=== PATIENT | female | born 1985 | race Caucasian/White ===

== ENCOUNTER 2018-02-22 22:20 | Emergency (ER) | payer SELFPAY ==
[2018-02-22] MEDS ORDERED: KETOROLAC 30 MG/ML INJ ONE (23:09)
[2018-02-22] MEDS ORDERED: PROMETHAZINE 25 MG/ML VIAL ONE (23:09)
[2018-02-22 23:14] LABS: Barbiturates NEGATIVE (NEGATIVE); Benzodiazepines NEGATIVE (NEGATIVE); Cocaine NEGATIVE (NEGATIVE); METHAMPHETAM POSITIVE (NEGATIVE); Methadone NEGATIVE (NEGATIVE); Opiates NEGATIVE (NEGATIVE); Phencyclidine NEGATIVE (NEGATIVE); THC Cannibis POSITIVE (NEGATIVE)
[2018-02-22 23:24] LABS: Urine Blood 1+ (NEG); Urine Glucose 2+ (NEG); Urine Protein NEGATIVE (NEG); Urine Specific Gravity 1.015 (1.005-1.030)
[2018-02-22 23:24] LABS: Absolute Monocytes 0.6 K/uL (0.1-1.3); Absolute Neutrophil 6.4 K/uL (1.8-8.0); Basophils % 0.4 % (0-1.3); Eosinophils % 1.4 % (0-4.4); Hematocrit 39.4 % (36.0-45.0); Lymphocytes % 22.1 % (15.3-44.8); MCH 30.3 pg (27.0-35.0); MCV 87.3 fL (80-100); MPV 7.6 fL (7.6-11.3); Monocytes % 6.9 % (3.3-12.3); RBC Red Blood Cell Count 4.52 M/uL (3.86-4.86)
[2018-02-22 23:45] LABS: Albumin 3.2 g/dL (3.4-5.0); Bilirubin Direct 0.1 mg/dL (0-0.2); Bilirubin Total 0.4 mg/dL (0.2-1.0); Potassium 4.2 mmol/L (3.5-5.1); Protein, Total 7.5 g/dL (6.4-8.2)
[2018-02-23] MEDS ORDERED: NA CHLORIDE 0.9% 1,000 ML ONE (00:12)
--- NOTE | 2018-02-23 01:20 | EDPHYS ---
Physician Documentation [facility] Name: So Antony Age: 32 yrs Sex: Female : 1985 Arrival Date: 02/22/2018 Time: 22:22 Bed 4 Private MD: ED Physician Manny Harvey HPI: 02/22 23:53 This 32 yrs old Female presents to ER via Ambulatory with complaints of RUQ pm1 abdominal pain. 23:53 The patient presents with abdominal pain in the right upper quadrant. Onset: The pm1 symptoms/episode began/occurred last night. The symptoms radiate to right back. Associated signs and symptoms: Pertinent negatives: nausea, vomiting, and diarrhea, chest pain, dysuria, fever, shortness of breath. The symptoms are described as sharp. Modifying factors: The symptoms are alleviated by nothing, the symptoms are aggravated by nothing. Severity of pain: in the emergency department the pain is actually worse. The patient has experienced similar episodes in the past, a few times, and the symptoms today are exactly the same, to when the patient was apparently diagnosed with Hepatitis. The patient has not recently seen a physician. 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 - Social history:: Smoking status: Patient uses tobacco products, smokes one-half pack cigarettes per day, Patient uses street drugs, marijuana, Patient/guardian denies using alcohol. - Ebola Screening: : No symptoms or risks identified at this time. ROS: 23:53 Constitutional: Negative for fever, chills, and weight loss, Eyes: Negative for injury, pm1 pain, redness, and discharge, ENT: Negative for injury, pain, and discharge, Neck: Negative for injury, pain, and swelling, Cardiovascular: Negative for chest pain, palpitations, and edema, Respiratory: Negative for shortness of breath, cough, wheezing, and pleuritic chest pain, Back: Negative for injury and pain, MS/Extremity: Negative for injury and deformity, Skin: Negative for injury, rash, and discoloration, Neuro: Negative for headache, weakness, numbness, tingling, and seizure. 23:53 Abdomen/GI: Positive for abdominal pain, Negative for nausea, vomiting, and diarrhea. Exam: 23:55 Constitutional: This is a well developed, well nourished patient who is awake, alert, pm1 and in no acute distress. Head/Face: Normocephalic, atraumatic. Eyes: Pupils equal round and reactive to light, extra-ocular motions intact. Lids and lashes normal. Conjunctiva and sclera are non-icteric and not injected. Cornea within normal limits. Periorbital areas with no swelling, redness, or edema. ENT: Nares patent. No nasal discharge, no septal abnormalities noted. Tympanic membranes are normal and external auditory canals are clear. Oropharynx with no redness, swelling, or masses, exudates, or evidence of obstruction, uvula midline. Mucous membranes moist. Neck: Trachea midline, no thyromegaly or masses palpated, and no cervical lymphadenopathy. Supple, full range of motion without nuchal rigidity, or vertebral point tenderness. No Meningismus. Chest/axilla: Normal chest wall appearance and motion. Nontender with no deformity. No lesions are appreciated. Cardiovascular: Regular rate and rhythm with a normal S1 and S2. No gallops, murmurs, or rubs. Normal PMI, no JVD. No pulse deficits. Respiratory: Lungs have equal breath sounds bilaterally, clear to auscultation and percussion. No rales, rhonchi or wheezes noted. No increased work of breathing, no retractions or nasal flaring. 23:55 Back: No spinal tenderness. No costovertebral tenderness. Full range of motion. Skin: Warm, dry with normal turgor. Normal color with no rashes, no lesions, and no evidence of cellulitis. MS/ Extremity: Pulses equal, no cyanosis. Neurovascular intact. Full, normal range of motion. 23:55 Abdomen/GI: Inspection: abdomen appears normal, Bowel sounds: normal, Palpation: soft, mild abdominal tenderness, in the right upper quadrant, mass, is not appreciated, rebound tenderness, is not appreciated. 23:55 Neuro: Orientation: is normal, Motor: is normal, moves all fours. Vital Signs: 22:41 BP 140 / 84; Pulse 101; Resp 20 S; Temp 98.7(O); Pulse Ox 99% on R/A; Weight 56.7 kg bb (R); Height 5 ft. 4 in. (162.56 cm) (R); Pain 10/10; 23:43 BP 116 / 95; Pulse 95; Resp 18; Pulse Ox 98% on R/A; lp1 02/23 00:30 BP 154 / 95; Pulse 98; Resp 16; Pulse Ox 98% on R/A; lp1 01:30 BP 136 / 79; Pulse 91; Resp 16; Pulse Ox 99% on R/A; lp1 02/22 22:41 Body Mass Index 21.46 (56.70 kg, 162.56 cm) bb MDM: 02/22 22:32 Patient medically screened. pm1 23:56 Data reviewed: vital signs. Data interpreted: Pulse oximetry: on room air is 98 %. pm1 Interpretation: normal. 02/23 01:18 Counseling: I had a detailed discussion with the patient and/or guardian regarding: the pm1 historical points, exam findings, and any diagnostic results supporting the discharge/admit diagnosis, lab results, radiology results, the need for outpatient follow up, to return to the emergency department if symptoms worsen or persist or if there are any questions or concerns that arise at home. 02/22 22:36 Order name: Basic Metabolic Panel; Complete Time: 23:52 pm1 02/22 22:36 Order name: CBC with Diff; Complete Time: 23:52 pm1 02/22 22:36 Order name: Hepatic Function; Complete Time: 23:52 pm1 02/22 22:36 Order name: Lipase; Complete Time: 23:52 pm1 02/22 22:36 Order name: UDS; Complete Time: 23:25 pm1 02/22 23:08 Order name: Urine Dipstick--Ancillary (enter results); Complete Time: 23:25 ms 02/22 22:36 Order name: Urine Test (obtain specimen); Complete Time: 23:23 pm1 02/22 22:36 Order name: IV Saline Lock; Complete Time: 22:45 pm1 02/22 22:36 Order name: Labs collected and sent; Complete Time: 22:45 pm1 02/22 22:36 Order name: CT Abd/Pelvis - W/Contrast: IV contrast pm1 02/22 23:08 Order name: Urine --Ancillary (enter results); Complete Time: 23:25 ms 02/22 22:36 Order name: Urine Dipstick-Ancillary (obtain specimen); Complete Time: 23:23 pm1 Administered Medications: 02/22 23:23 Drug: TORadol 30 mg Route: IVP; Site: left forearm; lp1 02/23 00:15 Follow up: Response: Pain is decreased lp1 02/22 23:23 Drug: Phenergan 12.5 mg Route: IVP; Site: left forearm; lp1 02/23 00:15 Follow up: Response: No adverse reaction lp1 00:11 Drug: NS 0.9% 1000 ml Route: IV; Rate: 1000 ml; Site: left antecubital; ao 01:53 Follow up: IV Status: Completed infusion; IV Intake: 1000ml lp1 Point of Care Testing: Blood Glucose: 02/22 22:38 Blood Glucose: 382 mg/dL; lp1 Ranges: Critical Glucose Levels:Adult <50 mg/dl or >400 mg/dl <40 mg/dl or >180 mg/dl Disposition: 02/23 06:59 Co-signature as Attending Physician, Manny Harvey MD I agree with the assessment and tw4 plan of care. PA/ATHLETIC EQUIPMENT MANAGER's history reviewed, patient interviewed, and examined. Attestation: The patient's history, exam findings, diagnostics, and a summary of any interventions or procedures was reviewed in detail with Daniel Kim NP. Disposition: 02/23/18 01:20 Discharged to Home. Impression: Methamphetamine abuse, Unspecified abdominal pain, Cannabis abuse. - Condition is Stable. - Discharge Instructions: Abdominal Pain, Adult, Cannabis Use Disorder, Stimulant Use Disorder-Methamphetamines. - Medication Reconciliation Form, Thank You Letter, Antibiotic Education, Prescription Opioid Use form. - Follow up: Emergency Department; When: As needed; Reason: Worsening of condition. Follow up: Private Physician; When: 2 - 3 days; Reason: Recheck today's complaints, Continuance of care, Re-evaluation by your physician. - Problem is new. - Symptoms have improved. Signatures: Dispatcher [employer] EDZainab Shelton RN RN bb Pena, Laura, RN RN lp1 Louie Galindo RN RN ao Marinas, Patrick, NP ATHLETIC EQUIPMENT MANAGER pm1 Manny Harvey, MD RAMIREZ tw4 Corrections: (The following items were deleted from the chart) 01:55 01:20 02/23/2018 01:20 Discharged to Home. Impression: Methamphetamine abuseUnspecified lp1 abdominal pain; Cannabis abuse. Condition is Stable. Forms are Medication Reconciliation Form, Thank You Letter, Antibiotic Education, Prescription Opioid Use. Follow up: Emergency Department; When: As needed; Reason: Worsening of condition. Follow up: Private Physician; When: 2 - 3 days; Reason: Recheck today's complaints, Continuance of care, Re-evaluation by your physician. Problem is new. Symptoms have improved. pm1
--- NOTE | 2018-02-23 01:20 | ER ---
Nurse's Notes [facility] Name: So Antony Age: 32 yrs Sex: Female : 1985 Arrival Date: 02/22/2018 Time: 22:22 Bed 4 Private MD: Diagnosis: Unspecified abdominal pain;Methamphetamine abuse;Cannabis abuse Presentation: 02/22 22:30 Presenting complaint: Patient states: she is having "liver pain" right upper abdominal bb pain radiating to back denies nausea, vomiting, or diarrhea, symptoms started last night. Transition of care: patient was not received from another setting of care. Onset of symptoms was February 21, 2018. Risk Assessment: Do you want to hurt yourself or someone else? Patient reports no desire to harm self or others. Initial Sepsis Screen: Does the patient meet any 2 criteria? No. Patient's initial sepsis screen is negative. Does the patient have a suspected source of infection? No. Patient's initial sepsis screen is negative. Care prior to arrival: None. 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 - Social history:: Smoking status: Patient uses tobacco products, smokes one-half pack cigarettes per day, Patient uses street drugs, marijuana, Patient/guardian denies using alcohol. - Ebola Screening: : No symptoms or risks identified at this time. Screenin:42 Abuse screen: Denies threats or abuse. Denies injuries from another. Nutritional lp1 screening: No deficits noted. Tuberculosis screening: No symptoms or risk factors identified. Fall Risk None identified. Assessment: 22:39 General: Appears uncomfortable, slender, Behavior is crying. Pain: Complains of pain in lp1 right upper quadrant Pain radiates to back. Neuro: Level of Consciousness is awake, alert, obeys commands, Oriented to person, place, time, situation. Cardiovascular: Patient's skin is warm and dry. Respiratory: Respiratory effort is even, unlabored, Respiratory pattern is regular, symmetrical, Breath sounds are clear bilaterally. GI: Abdomen is flat, Abdomen is tender to palpation in right upper quadrant. : No signs and/or symptoms were reported regarding the genitourinary system. EENT: No signs and/or symptoms were reported regarding the EENT system. Derm: Skin is pink, warm \\T\\ dry. Musculoskeletal: Circulation, motion, and sensation intact. 02/23 00:19 Reassessment: Patient and/or family updated on plan of care and expected duration. Pain lp1 level reassessed. Patient appears to be calm, resting, eyes closed Patient states symptoms have improved. 01:51 Reassessment: Patient awakened for discharge, complaint of continued abdominal pain. lp1 Vital Signs: 02/22 22:41 BP 140 / 84; Pulse 101; Resp 20 S; Temp 98.7(O); Pulse Ox 99% on R/A; Weight 56.7 kg bb (R); Height 5 ft. 4 in. (162.56 cm) (R); Pain 10/10; 23:43 BP 116 / 95; Pulse 95; Resp 18; Pulse Ox 98% on R/A; lp1 02/23 00:30 BP 154 / 95; Pulse 98; Resp 16; Pulse Ox 98% on R/A; lp1 01:30 BP 136 / 79; Pulse 91; Resp 16; Pulse Ox 99% on R/A; lp1 02/22 22:41 Body Mass Index 21.46 (56.70 kg, 162.56 cm) ED Course: 02/22 22:22 Patient arrived in ED. al2 22:29 Daniel Kim NP is PHCP. pm1 22:29 Manny Harvey MD is Attending Physician. pm1 22:38 Radiology exam delayed due to lab results not completed at this time. (BUN/Creatinine). 22:38 Guillermina Lee, JOAN is Primary Nurse. lp1 22:40 Triage completed. bb 22:43 Arm band placed on right wrist. lp1 22:43 Inserted saline lock: 20 gauge in right antecubital area, using aseptic technique. lp1 Blood collected. By tech. Johnny 22:44 Patient has correct armband on for positive identification. Bed in low position. Call lp1 light in reach. Pulse ox on. NIBP on. 23:21 Inserted saline lock: 20 gauge in left forearm, using aseptic technique. Blood lp1 collected. 20g to R AC DC'd due to patient discomfort when flushing, No infiltration noted, positive blood return. 02/23 00:17 CT Abd/Pelvis - W/Contrast: IV contrast In Process Unspecified. EDMS 00:25 CT completed. Patient tolerated procedure well. Patient moved to CT via stretcher. Patient moved back from CT. 01:52 No provider procedures requiring assistance completed. lp1 Administered Medications: 02/22 23:23 Drug: TORadol 30 mg Route: IVP; Site: left forearm; lp1 02/23 00:15 Follow up: Response: Pain is decreased lp1 02/22 23:23 Drug: Phenergan 12.5 mg Route: IVP; Site: left forearm; lp1 02/23 00:15 Follow up: Response: No adverse reaction lp1 00:11 Drug: NS 0.9% 1000 ml Route: IV; Rate: 1000 ml; Site: left antecubital; ao 01:53 Follow up: IV Status: Completed infusion; IV Intake: 1000ml lp1 Point of Care Testing: Blood Glucose: 02/22 22:38 Blood Glucose: 382 mg/dL; lp1 Ranges: Intake: 02/23 01:53 IV: 1000ml; Total: 1000ml. lp1 Outcome: 01:20 Discharge ordered by . pm1 01:54 Discharged to home via wheelchair. lp1 01:54 Condition: good 01:54 Discharge instructions given to patient, Instructed on discharge instructions, follow up and referral plans. Demonstrated understanding of instructions, follow-up care. 01:55 Patient left the ED. lp1 Signatures: Dispatcher [employer] EDPR Isiah Kelley Susan sj Ballard, Brenda, RN RN bb Pena, Laura, RN RN lp1 Louie Galindo RN RN ao Daniel Kim NP WINDOW UNIT AIR CONDITIONING MECHANIC pm1 Breanna Oates
--- NOTE | 2018-02-23 08:30 | RAD REPORT ---
EXAM DESCRIPTION: CTAbdomen Pelvis W Contrast - 02/23/2018 4:18 am CLINICAL HISTORY: Abdominal pain. ABD PAIN COMPARISON: None. TECHNIQUE: Biphasic CT imaging of the abdomen and pelvis was performed with 100 ml non-ionic IV cont rast. All CT scans are performed using dose optimization technique as appropriate and may include automated exposure control or mA/KV adjustment according to patient size. FINDINGS: The lung bases are clear. The liver, spleen, pancreas, adrenal glands and kidneys are within normal limits. No bowel obstruction, free air, free fluid or abscess. A few mildly thickened small bowel loops are s een in the left abdomen. The appendix is normal. No evidence of significant lymphadenopathy. No suspicious bony findings. Mild thickening of the urinary bladder wall is seen. Small amount of flu id is seen left adnexa. IMPRESSION: Urinary bladder wall thickening is suspected, which would be compatible with underlying cystitis. Advise correlation with urinalysis. A few mildly thickened small bowel loops in the left abdomen noted which are nonspecific. Enteritis i s a possibility.
== END 2018-02-23 01:55 | disposition home or self-care (01) ==
LOC: ER 22:20
DX: F15.10 Other stimulant abuse, uncomplicated (principal); F12.10 Cannabis abuse, uncomplicated; F17.210 Nicotine dependence, cigarettes, uncomplicated; E11.9 Type 2 diabetes mellitus without complications; Z79.4 Long term (current) use of insulin
CPT/HCPCS: 36415; 74177; 80048; 80076; 80307; 81003; 81025; 82962; 83690; 85025; 96361; 96374; 96375; 99284; J2550; J7030; Q9967

== ENCOUNTER 2018-02-24 21:58 | Emergency (ER) | payer SELFPAY ==
[2018-02-24] MEDS ORDERED: NA CHLORIDE 0.9% 100 ML IV ONE (22:47)
[2018-02-24] MEDS ORDERED: KETOROLAC 30 MG/ML INJ ONE (22:47)
[2018-02-24] MEDS ORDERED: FAMOTIDINE 20 MG/2 ML VIAL IV ONE (22:47)
[2018-02-24] MEDS ORDERED: PROMETHAZINE 25 MG/ML VIAL ONE (22:47)
[2018-02-24 23:38] LABS: Absolute Lymphocytes (CBC) 1.5 K/uL (0.7-4.9); Absolute Monocytes 0.7 K/uL (0.1-1.3); Absolute Neutrophil 6.4 K/uL (1.8-8.0); Basophils % 0.3 % (0-1.3); Eosinophils % 0.9 % (0-4.4); Lymphocytes % 17.7 % (15.3-44.8); MCH 30.1 pg (27.0-35.0); MCV 87.9 fL (80-100); MPV 7.7 fL (7.6-11.3); Monocytes % 7.7 % (3.3-12.3); RBC Red Blood Cell Count 4.32 M/uL (3.86-4.86)
[2018-02-24 23:55] LABS: Albumin 2.7 g/dL (3.4-5.0); Bilirubin Total 0.2 mg/dL (0.2-1.0); Potassium 3.9 mmol/L (3.5-5.1)
[2018-02-25] MEDS ORDERED: INSULIN -REGULAR HUMAN 50 UNIT/0.5 ML ML ONE (00:04)
[2018-02-25] MEDS ORDERED: NA CHLORIDE 0.9% 1,000 ML ONE (00:04)
[2018-02-25 00:11] LABS: Urine Blood 2+ (NEG); Urine Glucose 2+ (NEG); Urine Protein NEGATIVE (NEG)
[2018-02-25 00:17] LABS: Urine Bacteria >50 /HPF (<20)
[2018-02-25 00:18] LABS: Urine Culture Reflex Order REFLEXED; Urine RBC <5 /HPF (NONE SEEN)
[2018-02-25] MEDS ORDERED: CEFTRIAXONE/SWI 1gm 1 GM/10 ML SYR ONE (01:28)
--- NOTE | 2018-02-25 02:07 | ER ---
Nurse's Notes [facility] Name: So Antony Age: 32 yrs Sex: Female : 1985 Arrival Date: 02/24/2018 Time: 22:08 Bed 13 Private MD: Diagnosis: Urinary tract infection, site not specified;Hyperglycemia, unspecified;Unspecified abdominal pain Presentation: 02/24 22:36 Presenting complaint: Patient states: she has right upper quadrant pain. [place] [facility] [place]. Transition of care: patient was not received from another setting of care. Onset of symptoms was February 23, 2018. Risk Assessment: Do you want to hurt yourself or someone else? Patient reports no desire to harm self or others. Initial Sepsis Screen: Does the patient meet any 2 criteria? No. Patient's initial sepsis screen is negative. Does the patient have a suspected source of infection? No. Patient's initial sepsis screen is negative. Care prior to arrival: None. 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 - Social history:: Smoking status: Patient uses tobacco products, smokes one-half pack cigarettes per day, Patient uses marijuana, Patient/guardian denies using alcohol. - Ebola Screening: : No symptoms or risks identified at this time. Screenin:38 Abuse screen: Denies threats or abuse. Denies injuries from another. Nutritional mg2 screening: No deficits noted. Tuberculosis screening: No symptoms or risk factors identified. Fall Risk Assessment: 23:36 General: Appears in no apparent distress. uncomfortable, Behavior is calm, cooperative. mg2 Pain: Complains of pain in RUQ Pain does not radiate. Pain currently is 9 out of 10 on a pain scale. Quality of pain is described as aching, Pain began gradually, Is intermittent. Neuro: Level of Consciousness is awake, alert, obeys commands, Oriented to person, place, time. Cardiovascular: Capillary refill < 3 seconds Patient's skin is warm and dry. Respiratory: Airway is patent Respiratory effort is even, unlabored, Respiratory pattern is regular, symmetrical. GI: No signs and/or symptoms were reported involving the gastrointestinal system. GI: No signs and/or symptoms were reported involving the gastrointestinal system. Reports upper abdominal pain, nausea, vomiting. : No signs and/or symptoms were reported regarding the genitourinary system. EENT: No signs and/or symptoms were reported regarding the EENT system. Derm: Skin is intact, Skin is pink, warm \T\ dry. normal. Musculoskeletal: Circulation, motion, and sensation intact. 02/25 00:51 Reassessment: Patient appears in no apparent distress at this time. Patient and/or mg2 family updated on plan of care and expected duration. Pain level reassessed. Patient is alert, oriented x 3, equal unlabored respirations, skin warm/dry/pink. 02:16 Reassessment: Patient appears in no apparent distress at this time. Patient and/or mg2 family updated on plan of care and expected duration. Pain level reassessed. Patient is alert, oriented x 3, equal unlabored respirations, skin warm/dry/pink. Vital Signs: 02/24 22:37 BP 110 / 75; Pulse 75; Resp 18; Temp 98.5(O); Pulse Ox 100% on R/A; Weight 58.97 kg; mg2 Height 5 ft. 4 in. (162.56 cm); Pain 10/10; 23:54 BP 125 / 94; Pulse 80; Resp 18; Pulse Ox 100% on R/A; Pain 0/10; mg2 02/25 00:51 BP 110 / 73; Pulse 88; Resp 18; Pulse Ox 100% on R/A; Pain 0/10; mg2 01:20 BP 100 / 65; Pulse 80; Resp 18; Pulse Ox 100% on R/A; mg2 02:16 BP 110 / 64; Pulse 81; Resp 18; Pulse Ox 100% on R/A; Pain 0/10; mg2 02/24 22:37 Body Mass Index 22.31 (58.97 kg, 162.56 cm) mg2 ED Course: 02/24 22:08 Patient arrived in ED. ds1 22:25 Daniel Kim NP is PHCP. pm1 22:25 Corey Fuentes MD is Attending Physician. pm1 22:35 Steve Hermosillo RN is Primary Nurse. mg2 22:36 Triage completed. mg2 22:57 No provider procedures requiring assistance completed. Inserted saline lock: 20 gauge mg2 in right antecubital area, using aseptic technique. Blood collected. 23:38 Patient has correct armband on for positive identification. Bed in low position. Call mg2 light in reach. Side rails up X 1. Pulse ox on. NIBP on. Door closed. Warm blanket given. 23:38 Arm band placed on right wrist. mg2 02/25 02:15 IV discontinued, intact, bleeding controlled, No redness/swelling at site. Pressure mg2 dressing applied. Administered Medications: 02/24 22:56 Drug: Pepcid 20 mg Route: IVP; Site: right antecubital; mg2 23:39 Follow up: Response: No adverse reaction; Marked relief of symptoms mg2 22:57 Drug: TORadol 30 mg Route: IVP; Site: right antecubital; mg2 23:39 Follow up: Response: No adverse reaction; Marked relief of symptoms mg2 22:57 Drug: Phenergan 25 mg Route: IVP; Site: right antecubital; mg2 23:39 Follow up: Response: No adverse reaction; Marked relief of symptoms mg2 02/25 00:05 Drug: NS 0.9% 1000 ml Route: IV; Rate: 1000 ml; Site: right antecubital; mg2 01:20 Follow up: Response: No adverse reaction; IV Status: Completed infusion mg2 00:20 Drug: Insulin Regular Human 10 units {Co-Signature: bs1 (Kristy Alvarado RN).} Route: mg2 IVP; Site: right antecubital; 01:19 Follow up: Response: No adverse reaction mg2 01:26 Drug: Rocephin 1 grams Route: IV; Rate: calculated rate; Site: right antecubital; mg2 02:15 Follow up: Response: No adverse reaction; IV Status: Completed infusion mg2 Point of Care Testing: Blood Glucose: 01:20 Blood Glucose: 185 mg/dL; mg2 Ranges: Outcome: 02:06 Discharge ordered by MD. pm1 02:16 Discharged to home ambulatory. mg2 02:16 Condition: improved 02:16 Discharge instructions given to patient, Instructed on discharge instructions, follow up and referral plans. medication usage, Demonstrated understanding of instructions, follow-up care, medications, Prescriptions given X 3. 02:17 Patient left the ED. mg2 Addendum: 02/28/2018 10:52 Addendum: Culture Results: Positive urine culture. Bacteria is resistant to, has h b intermediate sensitivity, or is not tested against prescribed antibiotics. Report given to CAROL ANN for further evaluation and then to roll up operator for follow up with patient. Phone call Attempt #1 Ashley [phone], stop Bactrim, start Macrobid today Prescription called-in to pharmacy of choice. [facility] [phone]. Macrobid 100mg 1 tab PO q12 #14. Signatures: Marta Cabello ds1 Daniel Kim, PERNELL ROBOTYPE OPERATOR pm1 Krissy Kruger, JOAN RN Steve Hermosillo RN RN mg2 Kristy Alvarado RN bs1
--- NOTE | 2018-02-25 02:07 | EDPHYS ---
Physician Documentation [facility] Name: So Antony Age: 32 yrs Sex: Female : 1985 Arrival Date: 02/24/2018 Time: 22:08 Bed 13 Private MD: ED Physician Corey Fuentes HPI: 02/25 00:00 This 32 yrs old Female presents to ER via Ambulatory with complaints of pm1 Abdominal pain. 00:00 The patient presents with abdominal pain in the right upper quadrant. Onset: The pm1 symptoms/episode began/occurred 2 day(s) ago. The symptoms do not radiate. Associated signs and symptoms: Pertinent negatives: nausea, vomiting, and diarrhea, chest pain, fever, shortness of breath. The symptoms are described as achy, constant. Modifying factors: The symptoms are alleviated by toradol and phenergan given yesterday in ER. Severity of pain: in the emergency department the pain is actually worse. The patient has experienced similar episodes in the past. The patient has been recently seen at the [facility] Emergency Department, yesterday. 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 - Social history:: Smoking status: Patient uses tobacco products, smokes one-half pack cigarettes per day, Patient uses marijuana, Patient/guardian denies using alcohol. - Ebola Screening: : No symptoms or risks identified at this time. ROS: 02/25 00:00 Constitutional: Negative for fever, chills, and weight loss, Eyes: Negative for injury, pm1 pain, redness, and discharge, ENT: Negative for injury, pain, and discharge, Neck: Negative for injury, pain, and swelling, Cardiovascular: Negative for chest pain, palpitations, and edema, Respiratory: Negative for shortness of breath, cough, wheezing, and pleuritic chest pain. Back: Negative for injury and pain, : Negative for injury, bleeding, discharge, and swelling, MS/Extremity: Negative for injury and deformity, Skin: Negative for injury, rash, and discoloration, Neuro: Negative for headache, weakness, numbness, tingling, and seizure. Abdomen/GI: Positive for abdominal pain, Negative for nausea, vomiting, and diarrhea. Exam: 00:00 Constitutional: This is a well developed, well nourished patient who is awake, alert, pm1 and in no acute distress. Head/Face: Normocephalic, atraumatic. Eyes: Pupils equal round and reactive to light, extra-ocular motions intact. Lids and lashes normal. Conjunctiva and sclera are non-icteric and not injected. Cornea within normal limits. Periorbital areas with no swelling, redness, or edema. ENT: Nares patent. No nasal discharge, no septal abnormalities noted. Tympanic membranes are normal and external auditory canals are clear. Oropharynx with no redness, swelling, or masses, exudates, or evidence of obstruction, uvula midline. Mucous membranes moist. Neck: Trachea midline, no thyromegaly or masses palpated, and no cervical lymphadenopathy. Supple, full range of motion without nuchal rigidity, or vertebral point tenderness. No Meningismus. Chest/axilla: Normal chest wall appearance and motion. Nontender with no deformity. No lesions are appreciated. Cardiovascular: Regular rate and rhythm with a normal S1 and S2. No gallops, murmurs, or rubs. Normal PMI, no JVD. No pulse deficits. Respiratory: Lungs have equal breath sounds bilaterally, clear to auscultation and percussion. No rales, rhonchi or wheezes noted. No increased work of breathing, no retractions or nasal flaring. Abdomen/GI: Soft, non-tender, with normal bowel sounds. No distension or tympany. No guarding or rebound. No evidence of tenderness throughout. Back: No spinal tenderness. No costovertebral tenderness. Full range of motion. Skin: Warm, dry with normal turgor. Normal color with no rashes, no lesions, and no evidence of cellulitis. MS/ Extremity: Pulses equal, no cyanosis. Neurovascular intact. Full, normal range of motion. 00:00 Neuro: Orientation: is normal, Motor: is normal, strength is normal, strength is 5/5 in all extremities. Vital Signs: 02/24 22:37 BP 110 / 75; Pulse 75; Resp 18; Temp 98.5(O); Pulse Ox 100% on R/A; Weight 58.97 kg; mg2 Height 5 ft. 4 in. (162.56 cm); Pain 10/10; 23:54 BP 125 / 94; Pulse 80; Resp 18; Pulse Ox 100% on R/A; Pain 0/10; mg2 02/25 00:51 BP 110 / 73; Pulse 88; Resp 18; Pulse Ox 100% on R/A; Pain 0/10; mg2 01:20 BP 100 / 65; Pulse 80; Resp 18; Pulse Ox 100% on R/A; mg2 02:16 BP 110 / 64; Pulse 81; Resp 18; Pulse Ox 100% on R/A; Pain 0/10; mg2 02/24 22:37 Body Mass Index 22.31 (58.97 kg, 162.56 cm) mg2 MDM: 02/24 22:26 Patient medically screened. pm1 02/25 02:05 Data reviewed: vital signs. Data interpreted: Pulse oximetry: on room air is 100 %. pm1 Interpretation: normal. Counseling: I had a detailed discussion with the patient and/or guardian regarding: the historical points, exam findings, and any diagnostic results supporting the discharge/admit diagnosis, lab results, the need for outpatient follow up, to return to the emergency department if symptoms worsen or persist or if there are any questions or concerns that arise at home. 02/24 22:36 Order name: CBC with Diff; Complete Time: 23:56 pm1 02/24 22:36 Order name: CMP; Complete Time: 23:56 pm1 02/24 23:54 Order name: Urine Microscopic Only; Complete Time: 01:07 [facility] 02/25 00:06 Order name: Urine Dipstick--Ancillary (enter results); Complete Time: 01:07 mo 02/25 00:08 Order name: Urine --Ancillary (enter results); Complete Time: 01:07 mo 02/25 00:20 Order name: Urine Culture EDCT 02/24 22:36 Order name: Urine Dipstick-Ancillary (obtain specimen); Complete Time: 23:54 pm1 02/24 22:36 Order name: Urine Test (obtain specimen); Complete Time: 23:54 pm1 02/24 22:36 Order name: IV Saline Lock; Complete Time: 22:57 pm1 Administered Medications: 02/24 22:56 Drug: Pepcid 20 mg Route: IVP; Site: right antecubital; mg2 23:39 Follow up: Response: No adverse reaction; Marked relief of symptoms mg2 22:57 Drug: TORadol 30 mg Route: IVP; Site: right antecubital; mg2 23:39 Follow up: Response: No adverse reaction; Marked relief of symptoms mg2 22:57 Drug: Phenergan 25 mg Route: IVP; Site: right antecubital; mg2 23:39 Follow up: Response: No adverse reaction; Marked relief of symptoms mg2 02/25 00:05 Drug: NS 0.9% 1000 ml Route: IV; Rate: 1000 ml; Site: right antecubital; mg2 01:20 Follow up: Response: No adverse reaction; IV Status: Completed infusion mg2 00:20 Drug: Insulin Regular Human 10 units {Co-Signature: bs1 (Kristy Alvarado RN).} Route: mg2 IVP; Site: right antecubital; 01:19 Follow up: Response: No adverse reaction mg2 01:26 Drug: Rocephin 1 grams Route: IV; Rate: calculated rate; Site: right antecubital; mg2 02:15 Follow up: Response: No adverse reaction; IV Status: Completed infusion mg2 Point of Care Testing: Blood Glucose: 01:20 Blood Glucose: 185 mg/dL; mg2 Ranges: Critical Glucose Levels:Adult <50 mg/dl or >400 mg/dl <40 mg/dl or >180 mg/dl Disposition: 02/25/18 02:06 Discharged to Home. Impression: Urinary tract infection, site not specified, Hyperglycemia, unspecified, Unspecified abdominal pain. - Condition is Stable. - Discharge Instructions: Abdominal Pain, Adult, Hyperglycemia, Urinary Tract Infection, Adult, Blood Glucose Monitoring, Adult. - Prescriptions for Bentyl 20 mg Oral Tablet - take 1 tablet by ORAL route every 6 hours As needed; 20 tablet. Bactrim DS 800- 160 mg Oral Tablet - take 1 tablet by ORAL route every 12 hours for 10 days; 20 tablet. promethazine 25 mg Oral Tablet - take 1 tablet by ORAL route every 6 hours As needed; 20 tablet. - Medication Reconciliation Form, Thank You Letter, Antibiotic Education form. - Follow up: Emergency Department; When: As needed; Reason: Worsening of condition. Follow up: Private Physician; When: 2 - 3 days; Reason: Recheck today's complaints, Continuance of care, Re-evaluation by your physician. - Problem is new. - Symptoms have improved. Addendum: 03/01/2018 17:39 Co-signature as Attending Physician, Corey Fuentes MD. g s Signatures: Dispatcher [employer] EDMS Daniel Kim, SECURITY ARCHITECT SECURITY ARCHITECT pm1 Corey Fuentes MD MD gs Steve Hermosillo RN RN mg2 Kristy Alvarado RN bs1 Corrections: (The following items were deleted from the chart) 02/25 02:17 02:06 02/25/2018 02:06 Discharged to Home. Impression: Urinary tract infection, site mg2 not specified; Hyperglycemia, unspecified; Unspecified abdominal pain. Condition is Stable. Forms are Medication Reconciliation Form, Thank You Letter, Antibiotic Education, Prescription Opioid Use. Follow up: Emergency Department; When: As needed; Reason: Worsening of condition. Follow up: Private Physician; When: 2 - 3 days; Reason: Recheck today's complaints, Continuance of care, Re-evaluation by your physician. Problem is new. Symptoms have improved. pm1
== END 2018-02-25 02:17 | disposition home or self-care (01) ==
LOC: ER 21:58
DX: N39.0 Urinary tract infection, site not specified (principal); E11.65 Type 2 diabetes mellitus with hyperglycemia; Z79.4 Long term (current) use of insulin; F17.210 Nicotine dependence, cigarettes, uncomplicated
CPT/HCPCS: 36415; 80053; 81003; 81015; 81025; 82962; 85025; 87077; 87086; 87088; 87186; 96361; 96365; 96375; 99284; J0696; J2550; J7030

== ENCOUNTER 2022-09-03 10:23 | Emergency (ER) | payer SELFPAY ==
--- OUTSIDE RECORDS SUMMARY | 2022-09-03 10:27 | XMS REPORT | Continuity of Care Document ---
:1985 Author Organization [facility] t Address [address] [place] [id number] Care Team Providers Name Role Phone Unavailable Unavailable Unavailable Problems This patient has no known problems. Allergies, Adverse Reactions, Alerts This patient has no known allergies or adverse reactions. Medications This patient has no known medications. Procedures This patient has no known procedures. Results This patient has no known results.
--- NOTE | 2022-09-03 10:54 | RAD REPORT ---
EXAM DESCRIPTION: CT - Head Brain Wo Cont - 09/03/2022 10:46 am CLINICAL HISTORY: Headache COMPARISON: none TECHNIQUE: Computed axial tomography of the head was obtained. IV contrast was not requested. All CT scans are performed using dose optimization technique as appropriate and may include automated exposure control or mA/KV adjustment according to patient size. FINDINGS: An intracranial bleed is not seen The ventricles are normal in caliber No significant hypodense areas within the brain visualized No extra-axial fluid collection is noted. Fluid within the sinuses/ mastoids is not seen IMPRESSION: No acute intracranial abnormality is seen If patient's symptoms persist MRI of the brain would be recommended
[2022-09-03] MEDS ORDERED: METHYLPREDNISOLONE 125 MG INJ ONE (11:10)
[2022-09-03] MEDS ORDERED: METOCLOPRAMIDE 10 MG/2mL INJ ONE (11:10)
[2022-09-03] MEDS ORDERED: NA CHLORIDE 0.9% 1,000 ML ONE (11:11)
[2022-09-03] MEDS ORDERED: KETOROLAC 30 MG/ML INJ ONE (11:11)
[2022-09-03] MEDS ORDERED: DIPHENHYDRAMINE 50 MG/ML VIAL ONE (11:11)
[2022-09-03 11:22] LABS: Absolute Lymphocytes (CBC) 2.2 K/uL (0.7-4.9); Hematocrit 39.5 % (36.0-45.0); Lymphocytes % 36.7 % (15.3-44.8); MCV 87.5 fL (80-100); MPV 6.8 fL (7.6-11.3); RBC Red Blood Cell Count 4.51 M/uL (3.86-4.86)
[2022-09-03 11:42] LABS: Potassium 4.5 mmol/L (3.5-5.1)
--- NOTE | 2022-09-03 11:58 | ER ---
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 Denies fever. ss Coronavirus screen: Client denies travel out of the [place] in the last 14 days. Ebola Screen: Patient denies exposure to infectious person. Patient denies travel to an Ebola-affected area in the 21 days before illness onset. Initial Sepsis Screen: Does the patient meet any 2 criteria? No. Patient's initial sepsis screen is negative. Does the patient have a suspected source of infection? No. Patient's initial sepsis screen is negative. Risk Assessment: Do you want to hurt yourself or someone else? Patient reports no desire to harm self or others. Onset of symptoms was August 29, 2022. 10:42 Method Of Arrival: Ambulatory 10:42 Acuity: JASIEL 3 Historical: - Allergies: 10:43 No Known Allergies; ss - PMHx: 10:43 Diabetes - IDDM; Hep B; ss - Immunization history:: Client reports having NOT received the Covid vaccine. - Social history:: Smoking status: Patient reports the use of cigarette tobacco products, smokes one-half pack cigarettes per day. Assessment: 10:44 Reassessment: Pt to CT now VIA stretcher with ARACELY Perales Vital Signs: 10:42 BP 125 / 81; Pulse 93; Resp 14; Temp 97.9(TE); Pulse Ox 100% on R/A; Weight 63.5 kg; ss Height 5 ft. 4 in. (162.56 cm); Pain 8/10; 10:42 Body Mass Index 24.03 (63.50 kg, 162.56 cm) ED Course: 10:28 Patient arrived in ED. rg4 10:28 [facility] Ewing F[facility] jh7 10:28 Guicho Alvarado MD is Attending Physician. [facility] 10:43 Triage completed. 10:43 Arm band placed on right wrist. ss 10:53 CT Head Brain wo Cont In Process Unspecified. EDMS 12:05 IV discontinued, intact, bleeding controlled, No redness/swelling at site. Pressure 5 dressing applied. Administered Medications: 11:15 Drug: Ketorolac 30 mg Route: IVP; Site: right antecubital; jh5 11:15 Drug: diphenhydrAMINE 25 mg Route: IVP; Site: right antecubital; 5 11:15 Drug: Reglan (metoCLOPramide) 10 mg Route: IVP; Site: right antecubital; 5 11:15 Drug: SOLU-Medrol (methylPrednisoLONE) 125 mg Route: IVP; Site: right antecubital; 5 11:16 Drug: NS 0.9% 1000 ml Route: IV; Rate: 1 bolus; Site: right antecubital; 5 Outcome: 11:57 Discharge ordered by . jh7 12:05 Discharged to home ambulatory. jh5 12:05 Condition: good 12:05 Discharge instructions given to patient. 12:06 Patient left the ED. 5 Signatures: Dispatcher [employer] EDMS Ivory Roman, RN Akosua Traore rg4 Kendra Welch RN RN jh5 Shama Ewing, DREDGE OPERATOR DREDGE OPERATOR 7
--- NOTE | 2022-09-03 11:58 | EDPHYS ---
Physician Documentation [facility] Name: So Antony Age: 37 yrs Sex: Female : 1985 Arrival Date: 09/03/2022 Time: 10:28 Bed 23 Private MD: [place] Physician Guicho Alvarado HPI: 09/03 10:35 This 37 yrs old Female presents to ER via Ambulatory with complaints of FISHER, Vomiting, jh7 fatigue. 10:35 The patient presents to the emergency department with nausea, vomiting. Onset: The jh7 symptoms/episode began/occurred 4 day(s) ago. Associated signs and symptoms: Pertinent positives: nausea, vomiting, Pertinent negatives: abdominal pain, constipation, diarrhea, dysuria, fever. 37-year-old female presents with a headache beginning on Thursday with nausea and vomiting on Thursday and Thursday. Patient now complains of pounding headache, nausea, and dizziness with position changes. Reports a history of diabetes. Denies chest pain, shortness of breath, and abdominal pain. She states that she does not have a PCP.. Historical: - Allergies: 10:43 No Known Allergies; ss - PMHx: 10:43 Diabetes - IDDM; Hep B; ss - Immunization history:: Client reports having NOT received the Covid vaccine. - Social history:: Smoking status: Patient reports the use of cigarette tobacco products, smokes one-half pack cigarettes per day. ROS: 10:35 Constitutional: Negative for fever, chills, and weight loss, Eyes: Negative for injury, jh7 pain, redness, and discharge, Neck: Negative for injury, pain, and swelling, Cardiovascular: Negative for chest pain, palpitations, and edema, Respiratory: Negative for shortness of breath, cough, wheezing, and pleuritic chest pain, Back: Negative for injury and pain, MS/Extremity: Negative for injury and deformity, Skin: Negative for injury, rash, and discoloration, Neuro: Negative for headache, weakness, numbness, tingling, and seizure. 10:35 Abdomen/GI: Positive for nausea and vomiting, Negative for abdominal pain, diarrhea, constipation. 10:35 Neuro: Positive for dizziness, headache, Negative for altered mental status, gait disturbance, numbness, seizure activity, syncope, tingling, visual changes. 10:35 All other systems are negative. Exam: 10:35 Head/Face: Normocephalic, atraumatic. Eyes: Pupils equal round and reactive to light, [facility] extra-ocular motions intact. Lids and lashes normal. Conjunctiva and sclera are non-icteric and not injected. Cornea within normal limits. Periorbital areas with no swelling, redness, or edema. ENT: Nares patent. No nasal discharge, no septal abnormalities noted. Tympanic membranes are normal and external auditory canals are clear. Oropharynx with no redness, swelling, or masses, exudates, or evidence of obstruction, uvula midline. Mucous membranes moist. Neck: Trachea midline, no thyromegaly or masses palpated, and no cervical lymphadenopathy. Supple, full range of motion without nuchal rigidity, or vertebral point tenderness. No Meningismus. Cardiovascular: Regular rate and rhythm with a normal S1 and S2. No gallops, murmurs, or rubs. Normal PMI, no JVD. No pulse deficits. Respiratory: Lungs have equal breath sounds bilaterally, clear to auscultation and percussion. No rales, rhonchi or wheezes noted. No increased work of breathing, no retractions or nasal flaring. Abdomen/GI: Soft, non-tender, with normal bowel sounds. No distension or tympany. No guarding or rebound. No evidence of tenderness throughout. Back: No spinal tenderness. No costovertebral tenderness. Full range of motion. Skin: Warm, dry with normal turgor. Normal color with no rashes, no lesions, and no evidence of cellulitis. MS/ Extremity: Pulses equal, no cyanosis. Neurovascular intact. Full, normal range of motion. Neuro: Awake and alert, GCS 15, oriented to person, place, time, and situation. Motor strength 5/5 in all extremities. Sensory grossly intact. Normal gait. 10:35 Constitutional: The patient appears alert, awake, uncomfortable. Vital Signs: 10:42 BP 125 / 81; Pulse 93; Resp 14; Temp 97.9(TE); Pulse Ox 100% on R/A; Weight 63.5 kg; ss Height 5 ft. 4 in. (162.56 cm); Pain 8/10; 10:42 Body Mass Index 24.03 (63.50 kg, 162.56 cm) MDM: 10:28 Patient medically screened. [facility] 11:52 Differential diagnosis: Acute migraine headache, subarachnoid hemorrhage, viral jh7 syndrome, tension headache. Data reviewed: vital signs, nurses notes, lab test result(s), radiologic studies, CT scan. I considered the following discharge prescriptions or medication management in the emergency department Medications were administered in the Emergency Department. See MAR. Care significantly affected by the following chronic conditions: Diabetes. Care significantly affected by the following Social Determinants of Health: Poor access to healthcare and/or lack of insurance. Counseling: I had a detailed discussion with the patient and/or guardian regarding: the historical points, exam findings, and any diagnostic results supporting the discharge/admit diagnosis, to return to the emergency department if symptoms worsen or persist or if there are any questions or concerns that arise at home. Response to treatment: the patient's symptoms have markedly improved after treatment. 09/03 10:33 Order name: CT Head Brain wo Cont; Complete Time: 10:55 [facility] 09/03 10:33 Order name: BMP; Complete Time: 11:48 [facility] 09/03 10:33 Order name: CBC with Diff; Complete Time: 11:39 [facility] Administered Medications: 11:15 Drug: Ketorolac 30 mg Route: IVP; Site: right antecubital; [facility] 11:15 Drug: diphenhydrAMINE 25 mg Route: IVP; Site: right antecubital; [facility] 11:15 Drug: Reglan (metoCLOPramide) 10 mg Route: IVP; Site: right antecubital; [facility] 11:15 Drug: SOLU-Medrol (methylPrednisoLONE) 125 mg Route: IVP; Site: right antecubital; [facility] 11:16 Drug: NS 0.9% 1000 ml Route: IV; Rate: 1 bolus; Site: right antecubital; [facility] Disposition Summary: 09/03/22 11:57 Discharge Ordered Location: Home [facility] Problem: new [facility] Symptoms: have improved [facility] Condition: Stable [facility] Diagnosis - Headache [facility] - Nausea with vomiting, unspecified [facility] Followup: [facility] - With: Private Physician - When: 2 - 3 days - Reason: Recheck today's complaints Discharge Instructions: - Discharge Summary Sheet [facility] - Migraine Headache [facility] - Nausea and Vomiting, Adult [facility] Forms: - Medication Reconciliation Form [facility] - Thank You Letter [facility] Prescriptions: - ondansetron 4 mg Oral tablet,disintegrating - place 1 tablet by TRANSLINGUAL route 4 times per day As needed; 20 tablet; [facility] Refills: 0, Product Selection Permitted Signatures: Dispatcher [employer] Ivory Montejo, JOAN RN ss Kendra Welch RN RN jh5 Shama Ewing, CONSERVATION EDUCATOR CONSERVATION EDUCATOR 7
[2022-09-03 12:10] VITALS: BP 125/81; TEMP 97.9; O2SAT 100
== END 2022-09-03 12:06 | disposition home or self-care (01) ==
LOC: ER 10:23
DX: R51.9 Headache, unspecified (principal); R11.2 Nausea with vomiting, unspecified
CPT/HCPCS: 36415; 70450; 80048; 85025; J1200; J2765; J2930; J7030

== ENCOUNTER 2024-09-14 12:38 | Emergency (ER) | payer OTHER, SELFPAY ==
--- OUTSIDE RECORDS SUMMARY | 2024-09-14 12:41 | XMS REPORT | Continuity of Care Document ---
Author Name Unknown Address [address] [place] [address] [facility] Address [address] [place] [address] Care Team Providers Care Associate Financial Representative Name Role Phone Pcp, Patient Does Not Have A Primary Care Physic conor Campaigns, Generic Provider Attending Clinician Unavailable Nissa Miller NP Attending Clinician NISSA MILLER Attending Clinician Unavailable CECIL MUÑOZ Attending Clinician Unavailable Cecil Muñoz MD Attending Clinician [phone] Unknown, Attending Attending Clinician UnavailSESAR Yan Attending Clinician Unavailable Sesar Ramos Attending Clinician Doctor Unassigned, [place] Attending Clinician U NISSA Aguilar Admitting Clinician Unavailable Payers Payer Name Policy Type Policy Number Effective Date Expirati on Date Source Problems Condition Name Condition Details Condition Category Status Onset Date Resolution Date Last Treatment Date Treating Clinician Comments Source Diabetes mellitus Diabetes Mellitus Problem Active 11-16 00:00: 00 [facility] Type 2 diabetes mellitus Type 2 Diabetes Mellitus Problem Active 11-16 00:00: 00 [facility] Elevated blood-pres sure reading without diagnosis of hypertensi on Elevated Blood-pres sure Reading without Diagnosis of Hypertensi on Problem Active 11-16 00:00: 00 [facility] Allergies, Adverse Reactions, Alerts Allergy Name Allergy Type Status Severity Reaction(s) Onset Date Inactive Date Treating Clinician Comments Source NO KNOWN ALLERGIE S Drug Class Active [facility] Social History Social Habit Start Date Stop Date Quantity Comments Source [facility] function 2023-05-25 00:00:00 2023-05-25 00:00:00 [facility] Sex Assigned At 1985 00:00:00 1985 00:00:00 [facility] Smoking Status Start Date Stop Date Source Heavy Tobacco Smoker [facility] Tobacco smoking consumption unknown [facility] Medications Ordered Medication Name Filled Medication Name Start Date Stop Date Current Medication? Ordering Clinician Indication Dosage Frequency Signature (SIG) Comments Components Source ketorolac (TORADOL) injection 30 mg 10-13 22:45: 00 10-13 22:05 :00 No 30mg 30 mg, Slow IV Push, ONCE, 1 dose, On Thu10/14/23 at 1745, Routine [facility] NaCl 0.9% (NS) bolus infusion 1,000 mL 10-13 22:30: 00 10-13 23:33 :00 No 1000mL at 999 mL/hr, 1,000 mL, IV Infusion, ONCE, 1 dose, On Thu10/14/23 at 1730, SADIE [facility] insulin glargine,john manrec.anlog (INSULIN GLARGINE SC) 10-13 18:30: 55 Yes inject under the skin. [facility] Butalbital- Acetaminoph en-Caff (FIORICET) 50-300-40 mg per capsule 10-13 00:00: 00 Yes [id number] 1{capsu le} Take 1 capsule by mouth 4 (four) times daily as needed for Pain (scale 4-6) or Pain (scale 7-10). [facility] naproxen 375 mg tablet 10-13 00:00: 00 10-19 04:59 :00 No [id number] 375mg Take 1 tablet by mouth in the morning and 1 tablet at noon and 1 tablet in the evening. Take with meals. Do all this for 5 days. [facility] methylPREDN ISolone (MEDROL, ACACIA,) 4 mg tablets 2022-07 00:00: 00 10-13 00:00 :00 No [id number] Take by mouth SEE-INSTRU CTIONS. follow package directions [facility] ibuprofen 600 mg tablet 2022-07 00:00: 00 10-13 00:00 :00 No [id number] 600mg Take 1 tablet by mouth every 6 (six) hours as needed for Pain (scale 1-3) or Pain (scale 4-6). [facility] Nitrofurant oin&Nit. Macrocryst 100 mg capsule 2022-07 00:00: 00 05-31 05:59 :00 No [id number] 100mg Take 1 capsule by mouth in the morning and 1 capsule in the evening. Do all this for 7 days. [facility] ondansetron 4 mg disintegrat ing tablet 2018-07 00:00: 00 10-13 00:00 :00 No [id number] 4mg Take 1 tablet by mouth every 8 (eight) hours as needed for Nausea and Vomiting (N/V). [facility] azithromyci n 500 mg tablet Take 2 tablets every day by oral route as directed for 1 day. Take 1gm orally in a single dose azithromyci n 500 mg tablet Take 2 tablets every day by oral route as directed for 1 day. Take 1gm orally in a single dose No 2 Q1D azithromyc in 500 mg tablet Take 2 tablets every day by oral route as directed for 1 day. Take 1gm orally in a single dose [facility] Novolin 70/30 U-100 Insulin 15u BID Novolin 70/30 U-100 Insulin 15u BID No Novolin 70/30 U-100 Insulin 15u BID [facility] Vital Signs Vital Name Observation Time Observation Value Comments S ource BP Systolic 2023-11-17 00:00:00 154 mm[Hg] [facility] Body Weight 2023-11-17 00:00:00 133.6 [lb_av] [facility] Height 2023-11-17 00:00:00 64 [in_i] [facility] BMI (Body Mass Index) 2023-11-17 00:00:00 22.9 kg/m2 [facility] BP Diastolic 2023-11-17 00:00:00 97 mm[Hg] [facility] Systolic blood pressure 2023-10-14 23:44:00 120 mm[Hg] [facility] Diastolic blood pressure 2023-10-14 23:44:00 74 mm[Hg] [facility] Heart rate 2023-10-14 23:44:00 86 /min [facility] Respiratory rate 2023-10-14 23:44:00 16 /min [facility] Oxygen saturation in Arterial blood by Pulse oximetry 2023-10-14 23:44:00 99 /min [facility] Body temperature 2023-10-14 21:28:00 37.39 Pita [facility] Body height 2023-10-14 21:28:00 162.6 cm [facility] Body weight 2023-10-14 21:28:00 63.504 kg [facility] BMI 2023-10-14 21:28:00 24.03 kg/m2 [facility] Systolic blood pressure 2023-05-25 17:47:00 117 mm[Hg] [facility] Diastolic blood pressure 2023-05-25 17:47:00 76 mm[Hg] [facility] Heart rate 2023-05-25 17:47:00 101 /min [facility] Body temperature 2023-05-25 17:47:00 36.56 Pita [facility] Respiratory rate 2023-05-25 17:47:00 16 /min [facility] Body height 2023-05-25 17:47:00 162.6 cm [facility] Body weight 2023-05-25 17:47:00 61.825 kg [facility] BMI 2023-05-25 17:47:00 23.40 kg/m2 [facility] Oxygen saturation in Arterial blood by Pulse oximetry 2023-05-25 17:47:00 97 /min [facility] Systolic blood pressure 2023-05-23 19:21:00 139 mm[Hg] [facility] Diastolic blood pressure 2023-05-23 19:21:00 84 mm[Hg] [facility] Heart rate 2023-05-23 19:20:00 96 /min [facility] Body temperature 2023-05-23 19:20:00 36.89 Pita [facility] Respiratory rate 2023-05-23 19:20:00 16 /min [facility] Body height 2023-05-23 19:20:00 162.6 cm [facility] Body weight 2023-05-23 19:20:00 61.508 kg [facility] BMI 2023-05-23 19:20:00 23.28 kg/m2 [facility] Oxygen saturation in Arterial blood by Pulse oximetry 2023-05-23 19:20:00 97 /min [facility] Procedures Procedure Date / Time Performed Performing Clinician Source US GALL BLADDER 2023-10-14 22:27:13 [facility] VENOUS BLOOD GAS 2023-10-14 22:10:00 Nissa Miller [facility] LIPASE 2023-10-14 22:08:00 Nissa Miller [facility] COMP. METABOLIC PANEL ([id number]) 2023-10-14 22:08:00 Nissa Miller [facility] CBC WITH DIFF 2023-10-14 22:08:00 Nissa Miller [facility] GLYCOSYLATED HEMOGLOBIN (A1C) 2023-10-14 22:08:00 Nissa Miller [facility] URINALYSIS 2023-10-14 22:08:00 Nissa Miller [facility] RAPID INFLUENZA A/B 2023-10-14 22:08:00 Nissa Miller [facility] COVID-19 (ID NOW RAPID TESTING) 2023-10-14 22:08:00 Nissa Miller [facility] XR CHEST 1 VW 2023-10-14 21:49:40 Nissa Miller [facility] POCT MOLECULAR STREP 2023-05-25 17:54:00 Unknown, Atte keilaing [facility] POCT URINALYSIS 2023-05-23 19:25:00 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 [facility] - [facility]* [id number] [facility] 2023-10-21 00:00:00 2023-10-21 00:00:00 Letter (Out) Campaigns, Generic Provider [facility] 1.114 350.1.13.10 [id number] [id number] [facility] 2023-10-14 16:33:00 2023-10-14 18:45:00 Emergency Nissa Miller [facility] 1..114 350.1.13.10 4.2.7.2.686 [id number] [facility] 2023-10-14 16:33:00 2023-10-14 18:45:00 Emergency X NISSA MILLER [facility] ERT [id number] [facility] 2023-05-25 11:40:00 2023-05-25 12:48:39 Outpatient R CECIL MUÑOZ [facility] [id number] [facility] 2023-05-25 11:40:00 2023-05-25 12:00:00 Urgent Care Cecil Muñoz Unknown, Attending [facility] [id number] 350.1.13.10 4.2.7.2.686 [id number] [facility] 2023-05-25 11:40:00 2023-05-25 11:40:00 Outpatient CECIL PAT [facility] [id number] [facility] 2023-05-23 13:00:00 2023-05-23 13:38:02 Outpatient R SESAR DAVIS [facility] [id number] [facility] 2023-05-23 13:00:00 2023-05-23 13:20:00 Urgent Care Sesar Davis Unknown, Attending [facility] [id number] 350.1.13.10 4.2.7.2.686 [id number] [facility] 2023-05-23 13:00:00 2023-05-23 13:00:00 Outpatient SESAR GARCIA [facility] [id number] [facility] 2023-05-23 00:00:00 2023-05-23 00:00:00 Letter (Out) Leora Davisorionamauri [facility] [id number] 350.1.13.10 4.2.7.2.686 [id number] [facility] 2023-05-23 00:00:00 2023-05-23 00:00:00 Orders Only Doctor Unassigned, [place] [facility] [id number] 350.1.13.10 4.2.7.2.686 [id number] [facility] Results Test Description Test Time Test Comments Results Resul t Comments Source US GALL BLADDER 2023-10-05 0 23:08:19 History: r/o cholecystitis . Exam: US GALL BLADDER Date: 10/14/2023 4:45 PM Ordering provider: NSISA MILLER Technique: Gallbladder ultrasound is performed. Images are permanentlysaved in the patient's medical records. Comparison: None available. Findings: The visualized portion of the pancreas is unremarkable. Thepancreatic tail was not well seen because of bowel gas. The gallbladder shows normal distention. The gallbladder wall measures 2 mmin thickness. No evidence of gallbladder wall thickening or pericholecysticfluid. Negative sonographic Jose's sign although the patient is currentlymedicated. No evidence of shadowing gallstones or sludge. The visualized CBD is normal caliber measuring 3 mm. The diameter of themain portal vein is 1.1 cm. Hepatopedal flow is shown in the main portalvein. [facility]2023-10-14 22:53:48* Test Item Value Reference Range Interpretation Comme nts HGB A1C (test code = 4548-4) 4.0-5.7 H LEEANNE (test code = LEEANNE) Reference RangesNormal: <5.7%Prediabetes: 5.7 - 6.4%Diabetes: > 6.5% Lab Interpretation (test code = 07607-4) [facility] 22[facility]53:38* Test Item Value Reference Range Interpretation Comme nts LIPASE (test code = 7637830287) 54 U/L 0-220 Lab Interpretation (test cod e = 36504-7) Normal [facility] WITH [id number] 22:42:58* Test Item Value Reference Range Interpretation Comme nts WBC (test code = 6690-2) 9.00 4.30-11.10 RBC (test code = 789-8) 4.31 3.93-5.25 HGB (test code = 718-7) 12.3 g/dL 11.6-15.0 HCT (test code = 4544-3) 36.0 % 35.7-45.2 MCV (test code = 787-2) 83.5 fL 80.6-95.5 MCH (test code = 785-6) 28.5 pg 25.9-32.8 MCHC (test code = 786-4) 34.2 g/dL 31.6-35.1 RDW-SD (test code = 47105-1) 38.7 fL 39.0-49.9 L RDW-CV (test code = 788-0) 12.7 % 12.0-15.5 PLT (test code = 777-3) 277 166-358 MPV (test code = 73221-7) 10.5 fL 9.5-12.9 NRBC/100 WBC (test code = 6494797467) 0.0 0.0-10.0 NRBC x10^3 (test code = 3460227753) See_Comment [Automated [employer] ge] The system which generated this result transmitted reference range: 10*3/?L. The reference range was not used to interpret this result as normal/abnormal. GRAN MAT (NEUT) % (test code = 770-8) 75.8 % IMM GRAN % (test code = 3950427070) 0.40 % LYMPH % (test code = 736-9) 14.6 % MONO % (test code = 5905-5) 6.2 % EOS % (test code = 713-8) 2.6 % BASO % (test code = 706-2) 0.4 % GRAN MAT x10^3(ANC) (test code = 6767059198) 6.82 10*3/uL 1.88-7.09 IMM GRAN x10^3 (test code = 1878044071) 0.04 10*3/uL 0.00-0.06 LYMPH x10^3 (test code = 731-0) 1.31 10*3/uL 1.32-3.29 L MONO x10^3 (test code = 742-7) 0.56 10*3/uL 0.33-0.92 EOS x10^3 (test code = 711-2) 0.23 10*3/uL 0.03-0.39 BASO x10^3 (test code = 704-7) 0.04 10*3/uL 0.01-0.07 Lab Interpretation (test code = 61542-6) Abnormal [facility] 1 [id number] 22:27:53EXAM: XR CHEST 1 VW COMPARISON: None HISTORY: 38-year-old female presenting with fever and body aches FINDINGS: Lungs: The lungs are adequately expanded. No focal opacities or pleuralabnormality. Heart/Mediastinum: The cardiac silhouette appears normal accounting fortechnique and degree of inspiration. Bones and soft tissues: No osseous abnormality is visualized. Mild thoracicdextroscoliosis.[facility] Venous Blood [id number] 22:16:40* Test Item Value Reference Range Interpretation Comme nts PH (test code = 7882836806) 7.40 7.32-7.42 PCO2 BERYL (test code = 0350025035) 42 41-51 PO2 BERYL (test code = 6416571980) 33 25-40 HCO3 BERYL (test code = 5888296489) 26 24-28 AC VBE(BEAKER) (test code = 4763440470) 1.0 mEq/L [facility] SystemPOV[facility] MOLECULAR [id number] 18:01:57* Test Item Value Reference Range Interpretation Comme nts POCT Molecular Strep (test c ode = 80587-2) Negative Negative Lab Interpretation (test cod e = 11637-7) Normal [facility] URINALYSIS W SPECIFIC [id number] 19:26:00* Test Item Value Reference Range Interpretation Comme nts POCT U SP GRAV (test code = 3255) 1.015 mg/dl 1.005-1.025 POCT PH U (test code = 3254) 6.0 mg/dl 5-8 POCT U LEUK EST (test code = 3263) 2+ Negative - Negative POCT U NIT (test code = 3262) positive Negative - Negati ve POCT U PROT (test code = 3259) neg Negative - Negative POCT U GLU (test code = 3256) 1000 Negative - Negati ve POCT U KETONE (test code = 3258) neg Negative - Negative POCT U UROBILI (test code = 3260) normal 0.2-1 POCT U BILI (test code = 3261) neg Negative - Negative POCT U BLD (test code = 3257) 250 Negative - Negati ve POCT U COLOR (test code = 3266) dark yellow POCT U APPEAR (test code = 3267) cloudy [facility] Notes Date/Time Note Provider Source 2023-10-14 18:45:00 PT D/C home. GCS15, VS stable. Given D/C paperwork. Pt ambulatory at time of discharge. Pt educated on med usage, follow up care, s/s worsening condition, need for hydration. Pt verbalized understanding. Pt ambulated from ED in NAD Summer Rincon RN [facility] 2023-10-14 16:26:57 Pt arrived via private car with c/o fever and body aches x3 days. Pt takes insulin BID. 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 Denies n/v or dysuria. Thu Limon RN [facility]
[2024-09-14 14:23] LABS: Absolute Eosinophils 0.1 K/uL (0-0.5); Absolute Lymphocytes (CBC) 1.9 K/uL (0.7-4.9); Absolute Monocytes 0.5 K/uL (0.1-1.3); Absolute Neutrophil 5.9 K/uL (1.8-8.0); Basophils % 0.4 % (0-1.3); Eosinophils % 0.6 % (0-4.4); Hematocrit 39.5 % (36.0-45.0); Hemoglobin 13.3 g/dL (12.0-15.0); Lymphocytes % 22.5 % (15.3-44.8); MCH 28.7 pg (27.0-35.0); MCHC 33.6 g/dL (32.0-36.0); MCV 85.4 fL (80-100); MPV 7.2 fL (7.6-11.3); Neutrophils % 70.5 % (41.7-73.7); Platelets 293 thou/uL (152-406); RBC Red Blood Cell Count 4.63 M/uL (3.86-4.86); Red Cell Distribution Width 15.3 % (12.1-15.2)
[2024-09-14 14:25] LABS: Specific Gravity > 1.030 (1.005-1.030)
[2024-09-14 14:27] LABS: Specific Gravity > 1.030 (1.005-1.030); Sqamous Epithelial <5 /HPF (None Seen); Urine Bacteria <20 /HPF (<20); Urine Bilirubin NEGATIVE (Negative); Urine Blood 1+ (Negative); Urine Clarity Clear (Clear); Urine Color Light-Yellow (Yellow); Urine Crystals Unidentified Few /HPF (None Seen); Urine Culture Reflex Order NOT NEEDED; Urine Glucose 4+ (Over) (Negative); Urine Ketones NEGATIVE (Negative); Urine Microscopic Reflex YN ORDER UMIC; Urine Nitrite NEGATIVE (Negative); Urine Protein NEGATIVE (Negative); Urine RBC <5 /HPF (None Seen); Urine Urobilinogen Normal (Normal); Urine WBC <5 /HPF (<5)
[2024-09-14 14:38] LABS: Anion Gap 8.5 mEq/L (5.0-15.0); Potassium 4.5 mEq/L (3.5-5.1)
--- NOTE | 2024-09-14 14:48 | RAD REPORT ---
EXAMINATION: US Transvaginal OB COMPARISON: None. HISTORY: [facility] MAIN ABD PAIN Bed Name: IW1 TECHNIQUE: Real-time ultrasound was performed through the pelvis. A transvaginal scan was performed t o better visualize the intrauterine contents and adnexa. FINDINGS: There is a single gestational sac within the mid aspect of the uterine cavity. Rounded small echogenic focus seen within the sac, measuring approximately 4.3 mm. No evidence of fet al heart rate or cardiac pulsations. No yolk sac visualized. There is no visible subchorionic hemorrhage. Both ovaries are visualized and appear unremarkable. There is no free fluid in the cul-de-sac. Measurements and Calculations: [place] rump length 4.3mm, consistent with a sonographic age of 6 weeks, 1 day. The patient's LMP date is not stated IMPRESSION: Single intrauterine , with a composite sonographic age of 6 weeks, 1 day based on crown-rump length. No evidence of cardiac pulsations or artery identified within the pole. Findings raise concern for nonviability. Please correlate with beta hCG trending and short- term follow-up ultrasound in 3-7 days if clinically indicated. THIS REPORT CONTAINS FINDINGS THAT MAY BE CRITICAL TO PATIENT CARE. The findings were verbally commun icated via telephone to TRINIDAD Beckman on 09/14/2024 2:45 PM.
--- NOTE | 2024-09-14 14:55 | EDPHYS ---
Physician Documentation [facility] Name: So Antony Age: 39 yrs Sex: Female : 1985 Arrival Date: 09/14/2024 Time: 12:38 Bed 18 Private MD: ED Physician Conrad Su HPI: 09/14 13:27 This 39 yrs old Female presents to ER via Ambulatory with complaints of Vaginal kb Bleeding, + Preg <12wks. 13:27 Pt is a 39 year old female who presents for vaginal bleeding and lower abd cramping kb that started last night. Reports positive UPT yesterday. LMP 5-6 weeks ago. A0. Historical: - Allergies: 13:11 No Known Allergies; ph - PMHx: 13:11 Diabetes - IDDM; Hep B; ph - Immunization history:: Adult Immunizations unknown. - Infectious Disease History:: Denies. - Social history:: Smoking status: Patient reports the use of cigarette tobacco products, denies chronic smoking, but will smoke occasionally, Reported history of juuling and/or vaping. ROS: 13:27 Constitutional: As per HPI kb Exam: 13:27 Constitutional: This is a well developed, well nourished patient who is awake, alert, kb and in no acute distress. Head/Face: Normocephalic, atraumatic. ENT: Moist Mucous membranes Cardiovascular: Regular rate Respiratory: Respirations even and unlabored. No increased work of breathing. Talking in full sentences Abdomen/GI: Soft, non-tender. No distention Skin: Warm, dry with normal turgor. Normal color. MS/ Extremity: Pulses equal, no cyanosis. Neurovascular intact. Full, normal range of motion. Neuro: Awake and alert, GCS 15, oriented to person, place, time, and situation. Vital Signs: 13:07 BP 129 / 90; Pulse 83; Resp 18; Temp 97.3; Pulse Ox 99% on R/A; Weight 66.68 kg; Height ph 5 ft. 4 in. ; 13:07 Body Mass Index 25.23 (66.68 kg, 162.56 cm) ph MDM: 12:57 Medical Screening Exam initiated kb 14:53 Data reviewed: vital signs, nurses notes. kb 14:53 Differential diagnosis: threatened Ab, ectopic . Counseling: I had a detailed kb discussion with the patient and/or guardian regarding the historical points, exam findings, and any diagnostic results supporting the discharge/admit diagnosis, lab results, radiology results, the need for outpatient follow up, an OB/Gyne specialist, to return to the emergency department if symptoms worsen or persist or if there are any questions or concerns that arise at home. 09/14 13:11 Order name: Abo/rh Typing; Complete Time: 14:38 kb 09/14 13:11 Order name: Basic Metabolic Panel; Complete Time: 14:47 kb 09/14 13:11 Order name: CBC with Diff; Complete Time: 14:26 kb 09/14 13:11 Order name: Test, Urine; Complete Time: 14:26 kb 09/14 13:11 Order name: Quantitative Hcg; Complete Time: 14:47 kb 09/14 13:11 Order name: Urinalysis w/ reflexes; Complete Time: 14:38 kb 09/14 13:11 Order name: US Transvaginal Ob; Complete Time: 14:49 kb 09/14 13:11 Order name: IV Saline Lock; Complete Time: 14:10 kb 09/14 13:11 Order name: Labs collected and sent; Complete Time: 14:10 kb 09/14 13:11 Order name: NPO; Complete Time: 13:54 kb Administered Medications: No medications were administered Disposition: 17:00 Co-signature as Attending Physician, Conrad Su MD I reviewed the patient's care rn provided by the Advanced Practice Provider and agree with the diagnosis and treatment plan. Disposition Summary: 09/14/24 14:55 Discharge Ordered Notes: Location: Home kb Condition: Stable kb Diagnosis - Threatened kb Followup: kb - With: Private Physician - When: 2 - 3 days - Reason: Recheck today's complaints, Continuance of care, Re-evaluation by your physician Followup: kb - With: Emergency Department - When: As needed - Reason: Worsening of condition Discharge Instructions: - Discharge Summary Sheet kb - Threatened Miscarriage, [id number]-[id number] kb - Vaginal Bleeding During , First Trimester, Giyz-pa-Axzl kb Forms: - Medication Reconciliation Form kb - Antibiotic Education kb - Prescription Opioid Use kb - Patient Portal Instructions kb - Leadership Thank You Letter kb - Work release form bd Signatures: Dispatcher [employer] Dena Alvarez FNP-C FNP-Ckb Conrad Su MD MD rn Hall, Lias, JOAN RN ph
--- NOTE | 2024-09-14 14:55 | ER ---
Nurse's Notes [facility] Name: So Antony Age: 39 yrs Sex: Female : 1985 Arrival Date: 09/14/2024 Time: 12:38 Bed 18 Private MD: Diagnosis: Threatened Presentation: 09/14 13:07 Chief complaint: Patient states: Positive UPT yesterday, last night started having ph cramping and vaginal bleeding. Coronavirus screen: Vaccine status: Patient reports being unvaccinated. Ebola Screen: No symptoms or risks identified at this time. Initial Sepsis Screen: Does the patient meet any 2 criteria? No. Patient's initial sepsis screen is negative. Does the patient have a suspected source of infection? No. Patient's initial sepsis screen is negative. Risk Assessment: Do you want to hurt yourself or someone else? Patient reports no desire to harm self or others. 13:07 Method Of Arrival: Ambulatory 13:07 Acuity: JASIEL 3 ph Triage Assessment: 13:11 General: Appears in no apparent distress. Behavior is calm, cooperative. Pain: ph Complains of pain in suprapubic area. : Reports cramping, vaginal bleeding that is heavy flow. Historical: - Allergies: 13:11 No Known Allergies; ph - PMHx: 13:11 Diabetes - IDDM; Hep B; ph - Immunization history:: Adult Immunizations unknown. - Infectious Disease History:: Denies. - Social history:: Smoking status: Patient reports the use of cigarette tobacco products, denies chronic smoking, but will smoke occasionally, Reported history of juuling and/or vaping. Screenin:[address] [facility] ED Fall Risk Assessment (Adult) History of falling in the last 3 months, kc6 including since admission No falls in past 3 months (0 pts) Confusion or Disorientation No (0 pts) Intoxicated or Sedated No (0 pts) Impaired Gait No (0 pts) Mobility Assist Device Used No (0 pt) Altered Elimination No (0 pt) Score/Fall Risk Level 0 - 2 = Low Risk Oriented to surroundings, Maintained a safe environment, Educated pt \T\ family on fall prevention, incl call for assistance when getting out of bed. Abuse screen: Denies threats or abuse. Denies injuries from another. Nutritional screening: No deficits noted. Tuberculosis screening: No symptoms or risk factors identified. Assessment: 15:02 Obstetrical Assessment: General assessment: awake and alert, skin warm and dry, kc6 respirations even and unlabored. General: Appears in no apparent distress. comfortable, well groomed, well developed, Behavior is calm, cooperative, appropriate for age. Pain: Denies pain. Neuro: Level of Consciousness is awake, alert, obeys commands, Oriented to person, place, time, situation, Appropriate for age. Cardiovascular: Capillary refill < 3 seconds. Respiratory: Airway is patent Trachea midline Respiratory effort is even, unlabored, Respiratory pattern is regular, symmetrical. GI: No signs and/or symptoms were reported involving the gastrointestinal system. : Reports cramping, vaginal bleeding that is bright red, with clots, moderate flow. EENT: No signs and/or symptoms were reported regarding the EENT system. Derm: No signs and/or symptoms reported regarding the dermatologic system. Skin is intact, is healthy with good turgor, Skin is pink, warm \T\ dry. Musculoskeletal: No signs and/or symptoms reported regarding the musculoskeletal system. Circulation, motion, and sensation intact. Range of motion: intact in all extremities. Vital Signs: 13:07 BP 129 / 90; Pulse 83; Resp 18; Temp 97.3; Pulse Ox 99% on R/A; Weight 66.68 kg; Height ph 5 ft. 4 in. ; 13:07 Body Mass Index 25.23 (66.68 kg, 162.56 cm) ph ED Course: 12:41 Patient arrived in ED. cj3 12:56 Dena [facility]-C [facility] kb 12:56 Conrad Su MD is Attending Physician. kb 13:10 Triage completed. ph 13:11 Arm band placed on Patient placed in waiting room, Patient notified of wait time. ph 13:30 Patient placed in an exam room, on a stretcher. ll1 13:30 Initial lab(s) drawn, by ED staff, sent to lab. Urine collected: clean catch specimen, kc6 cloudy. Inserted saline lock: 22 gauge in left antecubital area, using aseptic technique. Blood collected. Flushed with 10 mL NS. 13:40 US Transvaginal Ob In Process Unspecified. EDMS 13:54 Kaela Parham RN is Primary Nurse. kc6 15:01 Patient has correct armband on for positive identification. Bed in low position. Call kc6 light in reach. Side rails up X 1. Adult w/ patient. Pulse ox on. NIBP on. Door closed. Noise minimized. Lights dimmed. Warm blanket given. Pillow given. Verbal reassurance given. 15:01 No provider procedures requiring assistance completed. Patient maintains SpO2 kc6 saturation greater than 95% on room air. 15:12 IV discontinued, intact, bleeding controlled, No redness/swelling at site. Pressure kc6 dressing applied. Administered Medications: No medications were administered Medication: 15:12 VIS not applicable for this client. kc6 Outcome: 14:55 Discharge ordered by . candi 15:12 Discharged to home ambulatory, with significant other, kc6 15:12 Condition: good 15:12 Discharge instructions given to patient, significant other, Instructed on discharge instructions, follow up and referral plans. Demonstrated understanding of instructions, follow-up care, 15:12 Patient left the ED. kc6 Signatures: Dispatcher [employer] EDMS Dena Garcai, FOOT WORKER-C FOOT WORKER-Lisa Ordonez, RN RN Capri Sheriff RN RN ll1 Kaela Parham, RN RN kc6 Shawna Jett3
[2024-09-14 16:02] VITALS: BP 129/90; TEMP 97.3; O2SAT 99
== END 2024-09-14 15:12 | disposition home or self-care (01) ==
LOC: ER 12:38
DX: O20.0 Threatened abortion (principal)
CPT/HCPCS: 36415; 76817; 80048; 81001; 81025; 84702; 85025; 86900; 86901; 99284

== ENCOUNTER 2024-11-16 18:01 | Emergency (ER) | payer OTHER ==
--- OUTSIDE RECORDS SUMMARY | 2024-11-16 18:05 | XMS REPORT | Continuity of Care Document ---
Author Name Unknown Address [address] [facility] [address] [place] [address] [facility] Address [address] [place] [address] Care Team Providers Care Watch And Clock Maker And Repairer Name Role Phone Mireya Davis Primary Care Physician [phone] Campaigns, Generic Provider Attending Clinician Unavailable Nissa Miller NP Attending Clinician [phone] NISSA MILLER Attending Clinician Unavailable CECIL MUÑOZ Attending Clinician Unavailable Cecil Muñoz MD Attending Clinician Unknown, Attending Attending Clinician UnavailSESAR Yan Attending Clinician Unavailable Sesar Ramos Attending Clinician [phone] Doctor Unassigned, [place] Attending Clinician U NISSA Aguilar Admitting Clinician [...] NO KNOWN ALLERGIE S Drug Class Active [facility] Social History Social Habit Start Date Stop Date Quantity Comments Source [facility] of Social function 2023-05-25 00:00:00 2023-05-25 00:00:00 [facility] Sex Assigned At 1985 00:00:00 1985 00:00:00 [facility] Smoking Status Start Date Stop Date Source Tobacco smoking consumption unknown [facility] Heavy Tobacco Smoker [facility] Medications Ordered Medication Name Filled Medication Name Start Date Stop Date Current Medication? Ordering Clinician Indication Dosage Frequency Signature (SIG) Comments Components Source Macrobid 100 mg capsule 09-17 00:00: 00 Yes 1mg Gonzalo Gomez Basaglar KwikPen U-100 Insulin 100 unit/mL (3 mL) subcutaneou s 09-13 00:00: 00 Yes (3 mL) Gonzalo Gomez ketorolac (TORADOL) injection 30 mg 10-13 22:45: 00 10-13 22:05 :00 No 30mg 30 mg, Slow IV Push, ONCE, 1 dose, On Thu10/14/23 at 1745, Routine [facility] NaCl 0.9% (NS) bolus infusion 1,000 mL 10-13 22:30: 00 10-13 23:33 :00 No 1000mL at 999 mL/hr, 1,000 mL, IV Infusion, ONCE, 1 dose, On Thu10/14/23 at 1730, SADIE [facility] insulin glargine,john m.rec.anlog (INSULIN GLARGINE SC) 10-13 18:30: 55 Yes inject under the skin. [facility] Butalbital- Acetaminoph en-Caff (FIORICET) 50-300-40 mg per capsule 10-13 00:00: 00 Yes [id number] 1{capsu le} Take 1 capsule by mouth 4 (four) times daily as needed for Pain (scale 4-6) or Pain (scale 7-10). [facility] naproxen 375 mg tablet 4-10 00:00: 00 10-19 04:59 :00 No [id number] 375mg Take 1 tablet by mouth in the morning and 1 tablet at noon and 1 tablet in the evening. Take with meals. Do all this for 5 days. [facility] methylPREDN ISolone (MEDROL, ACACIA,) 4 mg tablets 2022-07 00:00: 00 10-13 00:00 :00 No [id number] Take by mouth SEE-INSTRU CTIONS. follow package directions [facility] ibuprofen 600 mg tablet 2022-07 00:00: 00 10-13 00:00 :00 No [id number] 600mg Take 1 tablet by mouth every 6 (six) hours as needed for Pain (scale 1-3) or Pain (scale 4-6). [facility] Nitrofurant oin&Nit. Macrocryst 100 mg capsule 2022-07 00:00: 00 05-31 05:59 :00 No [id number] 100mg Take 1 capsule by mouth in the morning and 1 capsule in the evening. Do all this for 7 days. [facility] ondansetron 4 mg disintegrat ing tablet 2018-07- 00:00: 00 10-13 00:00 :00 No [id number] 4mg Take 1 tablet by mouth every 8 (eight) hours as needed for Nausea and Vomiting (N/V). [facility] azithromyci n 500 mg tablet Take [...] Take 1gm orally in a single dose [facility] Novolin 70/30 U-100 Insulin 15u BID Novolin 70/30 U-100 Insulin 15u BID No Novolin 70/30 U-100 Insulin 15u BID [facility] Vital Signs Vital Name Observation Time Observation Value Comments S ource BP Systolic 2023-11-17 00:00:00 154 mm[Hg] [facility] Body Weight 2023-11-17 00:00:00 133.6 [lb_av] [facility] Height 2023-11-17 00:00:00 64 [in_i] [facility] BMI (Body Mass Index) 2023-11-17 00:00:00 22.9 kg/m2 [facility] BP Diastolic 2023-11-17 00:00:00 97 mm[Hg] [facility] Medical Systolic blood pressure 2023-10-14 23:44:00 120 mm[Hg] [facility] Diastolic blood pressure 2023-10-14 23:44:00 74 mm[Hg] [facility] Heart rate 2023-10-14 23:44:00 86 /min Unive [facility] Respiratory rate 2023-10-14 23:44:00 16 /min [facility] Oxygen saturation in Arterial blood by Pulse oximetry 2023-10-14 23:44:00 99 /min [facility] Body temperature 2023-10-14 21:28:00 37.39 Pita [facility] Body height 2023-10-14 21:28:00 162.6 cm [facility] Body weight 2023-10-14 21:28:00 63.504 kg [facility] BMI 2023-10-14 21:28:00 24.03 kg/m2 [facility] Systolic blood pressure 2023-05-25 17:47:00 117 mm[Hg] [facility] Diastolic blood pressure 2023-05-25 17:47:00 76 mm[Hg] [facility] Heart rate 2023-05-25 17:47:00 101 /min Unive [facility] Body temperature 2023-05-25 17:47:00 36.56 Pita [facility] Respiratory rate 2023-05-25 17:47:00 16 /min [facility] Body height 2023-05-25 17:47:00 162.6 cm [facility] Body weight 2023-05-25 17:47:00 61.825 kg [facility] BMI 2023-05-25 17:47:00 23.40 kg/m2 [facility] Oxygen saturation in Arterial blood by Pulse oximetry 2023-05-25 17:47:00 97 /min [facility] Systolic blood pressure 2023-05-23 19:21:00 139 mm[Hg] [facility] Diastolic blood pressure 2023-05-23 19:21:00 84 mm[Hg] [facility] Heart rate 2023-05-23 19:20:00 96 /min [facility] Body temperature 2023-05-23 19:20:00 36.89 Pita [facility] Respiratory rate 2023-05-23 19:20:00 16 /min [facility] Body height 2023-05-23 19:20:00 162.6 cm [facility] Body weight 2023-05-23 19:20:00 61.508 kg [facility] BMI 2023-05-23 19:20:00 23.28 kg/m2 [facility] Oxygen saturation in Arterial blood by Pulse oximetry 2023-05-23 19:20:00 97 /min [facility] BP Systolic 2024-09-13 14:50:00 127 mm[Hg] Umair Gomez BP Diastolic 2024-09-13 14:50:00 80 mm[Hg] С[address] Gomez Weight Measured 2024-09-13 14:50:00 141.20 pounds Gonzalo Gomez Height Measured 2024-09-13 14:50:00 64.00 inches Gonzalo Gomez Body Temperature 2024-09-13 14:50:00 97.50 degrees Gonzalo Gomez Heart Rate 2024-09-13 14:50:00 94.00 /min Chetna en Namita Gomez Respiratory Rate 2024-09-13 14:50:00 18.00 /min Gonzalo Gomez Procedures Procedure Date / Time Performed Performing Clinician Source US GALL BLADDER 2023-10-14 22:27:13 [facility] BLO[facility] GAS 2023-10-14 22:10:00 Nissa Miller [facility] LIPASE 2023-10-14 22:08:00 Nissa Miller [facility] COMP. METABOLIC PANEL ([id number]) 2023-10-14 22:08:00 Nissa Miller [facility] CBC WITH DIFF 2023-10-14 22:08:00 Nissa Miller [facility] GLYCOSYLATED HEMOGLOBIN (A1C) 2023-10-14 22:08:00 Nissa Miller [facility] URINALYSIS 2023-10-14 22:08:00 Nissa Miller [facility] RAPID INFLUENZA A/B 2023-10-14 22:08:00 Nissa Miller [facility] COVID-19 (ID NOW RAPID TESTING) 2023-10-14 22:08:00 Nissa Miller [facility] XR CHEST 1 VW 2023-10-14 21:49:40 Nissa Miller [facility] POCT MOLECULAR STREP 2023-05-25 17:54:00 Unknown, Atte jose juan [facility] POCT URINALYSIS 2023-05-23 19:25:00 Sesar Davis [facility] CONSENT/REFUSAL FOR DIAGNOSIS AND TREATMENT 2023-05-23 18:41:07 Doctor Unassigned, [place] [facility] Encounters Start Date/Time End Date/Time Encounter Type Admission Type Attending [facility] Care Department Encounter ID Source 2024-09-13 00:00:00 2024-09-13 00:00:00 Outpatient Visit [facility] [id number] Gonzalo Gomez 2023-11-17 00:00:00 2023-11-17 00:00:00 Polly Greenberg, [place]: [address], [address], [place] [address] , Ph. [facility] - GC_GCBZW_Enedina wern Jose* [id number] [facility] 2023-10-21 00:00:00 2023-10-21 00:00:00 Letter (Out) Campaigns, Generic Provider [facility] [id number] [id number] [id number] [id number] [facility] 2023-10-14 16:33:00 2023-10-14 18:45:00 Emergency Nissa Miller G [facility] 1.84.114 350.1.13.10 4.2.7.2.686 [id number] [facility] 2023-10-14 16:33:00 2023-10-14 18:45:00 Emergency X NISSA MILLER [facility] ERT [id number] [facility] 2023-05-25 11:40:00 2023-05-25 12:48:39 Outpatient R CECIL MUÑOZ [facility] [id number] [facility] 2023-05-25 11:40:00 2023-05-25 12:00:00 Urgent Care Cecil Muñoz Unknown, Attending [facility] [id number] 350.1.13.10 4.2.7.2.686 [id number] [facility] 2023-05-25 11:40:00 2023-05-25 11:40:00 Outpatient R CECIL MUÑOZ [facility] [id number] [facility] 2023-05-23 13:00:00 2023-05-23 13:38:02 Outpatient R SESAR DAVIS [facility] [id number] [facility] 2023-05-23 13:00:00 2023-05-23 13:20:00 Urgent Care Sesar Davis Unknown, Attending [facility] 1..840.114 350.1.13.10 4.2.7.2.686 [id number] [facility] 2023-05-23 13:00:00 2023-05-23 13:00:00 Outpatient R SESAR DAVIS [facility] [id number] [facility] 2023-05-23 00:00:00 2023-05-23 00:00:00 Letter (Out) Sesar Davis [facility] [id number] 350.1.13.10 4.2.7.2.686 [id number] [facility] 2023-05-23 00:00:00 2023-05-23 00:00:00 Orders Only Doctor Unassigned, [place] [facility] 1.2840.114 350.1.13.10 4.2.7.2.686 [id number] [facility] Results Test Description Test Time Test Comments Results Result Co mments Source Gonzalo GomezHEMOGLOBIN [id number] 00:00:00* Test Item Value Reference Range Interpretation Comme nts HEMOGLOBIN A1c (test code = 4548-4) 13.2 %oftotalHgb Gonzalo Kaur GALL [id number] 23:08:19History: r/o cholecystitis . Exam: US GALL BLADDER Date: 10/14/2023 4:45 PM Ordering provider: NISSA MILLER Technique: Gallbladder ultrasound is performed. Images are permanentlysaved in the patient's medical records. Comparison: None available. Findings: The visualized portion of the pancreas isunremarkable. Thepancreatic tail was not well seen because [...] flow is shown in the main portalvein. [facility] ([id number])2023-10-14 22:53:58* Test Item Value Reference Range Interpretation Comme nts NA (test code = 2080193166) 130 mmol/L 135-145 L K (test code = 5498782406) 4.9 mmol/L 3.5-5.0 CL (test code = 9658177002) 94 mmol/L 98-108 L CO2 TOTAL (test code = 1666887879) 28 mmol/L 23-31 AGAP (test code = 9295962597) 8 2-16 BUN (test code = 7258586444) 16 mg/dL 7-23 GLUCOSE (test code = 6109387362) 323 mg/dL 70-110 H CREATININE (test code = 2160-0) 0.70 mg/dL 0.50-1.04 TOTAL BILI (test code = 9749030768) 0.8 mg/dL 0.1-1.1 CALCIUM (test code = 3740361220) 8.8 mg/dL 8.6-10.6 T PROTEIN (test code = 5368019636) 7.7 g/dL 6.3-8.2 ALBUMIN (test code = 8812720223) 3.7 g/dL 3.5-5.0 ALK PHOS (test code = 5508026822) 120 U/L 34-122 ALTv (test code = 1742-6) 51 U/L 5-35 H AST(SGOT) (test code = 2936615599) 62 U/L 13-40 H eGFR (test code = 40394-8) 113.0 mL/min/1.73m2 CKD-EPI eGFR (2020). Assuming creatinine has been stable day-to-day for at least three months, the eGFR indicates Category G1 (>= 90 mL/min/1.73 m2) Lab Interpretation (test code = 53000-0) Abnormal [facility] (A1C)2023-10-14 22:53:48* Test Item Value Reference Range Interpretation Comme nts HGB A1C (test code = 4548-4) 4.0-5.7 H LEEANNE (test code = LEEANNE) Reference RangesNormal: <5.7%Prediabetes: 5.7 - 6.4%Diabetes: > 6.5% Lab Interpretation (test code = 27037-0) Abnormal [facility] 22:53:38* Test Item Value Reference Range Interpretation Comme nts LIPASE (test code = 5139785850) 54 U/L 0-220 Lab Interpretation (test cod e = 83440-8) Normal [facility] WITH [id number] 22:42:58* Test Item Value Reference Range Interpretation [...] 34.2 g/dL 31.6-35.1 RDW-SD (test code = 49362-9) 38.7 fL 39.0-49.9 L RDW-CV (test code = 788-0) 12.7 % 12.0-15.5 PLT (test code = 777-3) 277 166-358 MPV (test code = 70067-6) 10.5 fL 9.5-12.9 NRBC/100 WBC (test code = 9611410008) 0.0 0.0-10.0 NRBC x10^3 (test code = 6064387137) See_Comment [Automated messa ge] The system which generated this result transmitted reference range: 10*3/?L. The reference range was not used to interpret this result as normal/abnormal. GRAN MAT (NEUT) % (test code = 770-8) 75.8 % IMM GRAN % (test code = 9017639102) 0.40 % LYMPH % (test code = 736-9) 14.6 % MONO % (test code = 5905-5) 6.2 % EOS % (test code = 713-8) 2.6 % BASO % (test code = 706-2) 0.4 % GRAN MAT x10^3(ANC) (test code = 1947666025) 6.82 10*3/uL 1.88-7.09 IMM GRAN x10^3 (test code = 2783044800) 0.04 10*3/uL 0.00-0.06 LYMPH x10^3 (test code = 731-0) 1.31 10*3/uL 1.32-3.29 L MONO x10^3 (test code = 742-7) 0.56 10*3/uL 0.33-0.92 EOS x10^3 (test code = 711-2) 0.23 10*3/uL 0.03-0.39 BASO x10^3 (test code = 704-7) 0.04 10*3/uL 0.01-0.07 Lab Interpretation (test code = 24245-0) Abnormal [facility] [id number] 22:27:53EXAM: XR CHEST 1 VW COMPARISON: None HISTORY: 38-year-old female presenting with fever and body aches FINDINGS: Lungs: The lungs are adequately expanded. No focal opacities or pleuralabnormality. Heart/Mediastinum: The cardiac silhouette appears normal accounting fortechnique and degree of inspiration. Bones and soft tissues: No osseous abnormality is visualized. Mild thoracicdextroscoliosis.[facility] Venous Blood [id number] 22:16:40* Test Item Value Reference Range Interpretation Comme nts PH (test code = 7702794527) 7.40 7.32-7.42 PCO2 BERYL (test code = 9918166158) 42 41-51 PO2 BERYL (test code = 1677985309) 33 25-40 HCO3 BERYL (test code = 7995093833) 26 24-28 AC VBE(BEAKER) (test code = 6756738130) 1.0 mEq/L [facility] MO[facility]ULAR [id number] 18:01:57* Test Item Value Reference Range Interpretation Comme nts POCT Molecular Strep (test c ode = 56867-3) Negative Negative Lab Interpretation (test cod e = 08683-9) Normal [facility] URINALYSIS W SPECIFIC [id number] 19:26:00* Test Item Value Reference Range Interpretation [...] U APPEAR (test code = 3267) cloudy [facility] Notes Date/Time Note Provider Source Gonzalo Tavarez [facility]2024-04-10 18:45:00 PT D/C home. GCS15, VS stable. Given D/C paperwork. Pt ambulatory at time of discharge. Pt educated on med usage, follow up care, s/s worsening condition, need for hydration. Pt verbalized understanding. Pt ambulated from ED in [facility] Summer Rincon [id number] 16:26:57 Pt arrived via private car with c/o fever and body aches x3 days. Pt takes insulin BID. Medicated with tylenol vessel captain. Denies n/v or dysuria. Thu Limon [facility]
--- NOTE | 2024-11-16 20:08 | ER ---
Nurse's Notes [facility] Name: So Antony Age: 39 yrs Sex: Female : 1985 Arrival Date: 11/16/2024 Time: 18:01 Bed IW10 Private MD: Diagnosis: Assessment: 11/16 18:53 General: called from lobby. No answer.. me1 19:01 General: called from lobby. No answer.. me1 19:20 General: called from lobby. No answer.. me1 ED Course: 18:05 Patient arrived in ED. cj3 18:41 Mi Herzog [facility]C [facility] sb4 18:41 Guicho Alvarado MD is Attending Physician. sb4 Administered Medications: No medications were administered Outcome: 20:07 Eloped from waiting room, before seeing physician me1 20:07 unknown 20:07 Patient left the ED. me1 Signatures: Mi Herzog PA-C PA-C sb4 Sarah Goldman RN RN me1 Shawna Jett cj3
== END 2024-11-16 20:07 | disposition left against medical advice (07) ==
LOC: ER 18:01
DX: Z02.9 Encounter for administrative examinations, unspecified (principal)